=== PATIENT | male | born 1995 | race Caucasian/White ===

== ENCOUNTER 2018-12-15 09:31 | Emergency (ER) | payer OTHER ==
[~2018-12-15] VITALS: Ht 188 cm; Wt 106.8 kg
[2018-12-15 09:37] VITALS: BP 127/74; TEMP 98.8
[2018-12-15] MEDS ORDERED: [UNRECOGNIZED DRUG - REMARK] (10:19)
[2018-12-15] MEDS ORDERED: CRUTCHES MC ×2 (10:31→10:45)
[2018-12-15 10:52] VITALS: PULSE 99
== END 2018-12-15 10:53 | disposition home or self-care (01) ==
LOC: COL.ER 09:31
DX: S93.402A Sprain of unspecified ligament of left ankle, initial encounter (principal); W10.9XXA Fall (on) (from) unspecified stairs and steps, initial encounter